=== PATIENT | male | born 1945 | race Caucasian/White ===

== ENCOUNTER 2020-09-16 11:46 | Emergency (ER) | payer OTHER, SELFPAY ==
[2020-09-16 12:02] VITALS: BP 170/75; PULSE 64; RESP 18; TEMP 36.7; O2SAT 97
[2020-09-16 12:10] LABS: Bilirubin Negative (Negative); Blood Negative (Negative); Clarity Clear (Clear); Glucose Negative (Negative); Ketones Negative (Negative); Leukocyte Esterase Negative (Negative); Nitrite Negative (Negative); Specific Gravity 1.015 (1.005-1.025); Urobilinogen 0.2 EU/dL (Up TO 0.2)
[2020-09-16 12:44] LABS: Abs Immature Grans 0.06 10^3/uL (0.0-0.06); Absolute Basophil Count 0.12 10^3/uL (0.0-0.2); Absolute Eosinophil Count 0.19 10^3/uL (0.0-0.7); Absolute Neutrophil Count 6.73 10^3/uL (1.2-6.7); Basophils % 1.2; Eosinophils % 1.9; HCT 39.3 % (40.0-50.0); HGB 12.4 g/dL (13.5-17.5); Immature Grans % 0.6; Lymphocytes % 21.8; MCH 27.9 pg (27.0-33.0); MCHC 31.6 % (32.0-36.0); MCV 88.3 fL (80-95); MPV 9.7 fL (8.0-11.0); Monocytes % 7.9; Neutrophils % 66.6; Nucleated RBC 0 %; Platelet Count 223 10^3/uL (130-400); RBC 4.45 10^6/uL (4.36-5.78); RDW 15.1 % (11.8-14.1); RDW-SD 49.1 fL
[2020-09-16] MEDS: Normal Saline 500 ML IV (12:47)
[2020-09-16] MEDS: fentaNYL 100 MCG/2 ML VIAL 50 MCG IVP ×2 (12:47→16:32)
[2020-09-16 12:57] LABS: ALT 24 U/L (16-63); AST 23 U/L (15-37); Alkaline Phosphatase 145 U/L (46-116); Anion Gap 6.9 mmol/L (3-11); BUN 12 mg/dL (7-18); Bilirubin, Total 0.5 mg/dL (0.2-1.0); CO2 29.1 mmol/L (21.0-32.0); CREATININE 0.8 mg/dL (0.70-1.30); Calcium 9.3 mg/dL (8.5-10.1); Chloride 102 mmol/L (98-107); Glucose 96 mg/dL (74-106); Lipase 37 U/L (73-393); Potassium 4.3 mmol/L (3.5-5.1); Sodium 138 mmol/L (136-145); Total Protein 8.2 g/dL (6.4-8.2)
--- NOTE | 2020-09-16 13:30 | DI.CT_ITS ---
EXAM: CT THORAX ABD/PEL CTA CLINICAL HISTORY: hx of aneurysm, and left flank pain. TECHNIQUE: Imaging Protocol: Axial computed tomography images with coronal and sagittal reformatted images were created and reviewed CONTRAST MATERIAL: Intravenous: Omnipaque 350 Contrast volume:100 ml Oral: None COMPARISON: CR PORTABLE CHEST ONE VIEW from 10/22/2012 CR PORTABLE CHEST ONE VIEW from 10/22/2012 FINDINGS: CHEST: LUNGS: Bilateral COPD changes both lung bustamante. Small bilateral pleural effusions. Small thin-matt d bulla is noted in the right lung base.. MEDIASTINUM: There is no hilar nor mediastinal adenopathy. Visualized thyroid unremarkable. CARDIAC: Sternotomy wires. Heart size is slightly prominent. There is no pericardial effusion. Lar ge retrocardiac hiatal hernia. AORTA: Thoracic aorta is atherosclerotic butthere is no evidence of aortic dissection. Left vertebra l artery originates as an independent vessel off the aortic arch. The diameter of the ascending thor acic aorta is within normal limits.. Diameter of the thoracic aortic arch is slightly prominent at 3 .4 cm. Diameter of the proximal descending thoracic aorta is upper normal-slightly prominent. Diame ter of the descending thoracic aorta is upper normal. There is an infrarenal fusiform abdominal aortic aneurysmwhich exhibits a maximum diameter of 3.3 cm. This is at the RUBIA level. 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 Both common femoral arteries are patent and nonaneurysmal. V isualized proximal SFA arteries are patent. ABDOMEN: There is no ascites. There is a large retrocardiac hiatal hernia. A large part of the stomach is in the chest. LIVER: There are no focal hepatic lesions nor dilatation of intrahepatic ducts. GALLBLADDER/BILIARY: Single small 4 millimeter gallstone noted. No gallbladder wall edema. CBD is n ot dilated. PANCREAS: No evidence of pancreatic mass nor dilatation of the pancreatic duct. SPLEEN: Spleen is not enlarged. There are no intrasplenic lesions. Splenic and portal veins are rose nt. ADRENALS: There are no significant adrenal masses. KIDNEYS: There are parapelvic cysts in both kidneys, more so on the left side. There is a small nono bstructive calculus in the right kidney measuring 3 millimeters. There are no calculi in the opposit e-left kidney. No solid renal masses. ABDOMINAL AORTA: As above LYMPH NODES: There is no retroperitoneal nor para-aortic adenopathy. No obvious mesenteric masses. ABDOMINAL WALL/GI: There is a left inguinal hernia. It contains a bowel loop which is part of the si gmoid. There is no bowel obstruction at this level. Sigmoid diverticulosis. No obvious acute diver ticulitis. Abundant fecal material noted in the rectum which exhibits diameter of 6.4 cm. PELVIS: LYMPH NODES: There is no intrapelvic nor inguinal adenopathy. GI: No evidence of appendicitis.No evidence of sigmoid diverticulitis. URINARY BLADDER: Somewhat distended REPRODUCTIVE: Prostate size upper normal. OSSEOUS: No significant osseous lesions. IMPRESSION: 1. COPD. Small bilateral pleural effusions. No evidence of aortic dissection, as per request. No i ntrathoracic adenopathy but there is a large retrocardiac hiatal hernia containing most of the stomac h. 2. Cholelithiasis but no evidence of acute cholecystitis nor dilatation of the biliary tree. 3. Solitary 3 millimeter nonobstructive calculus in the right kidney. In the left kidney there are n o calculi. There are parapelvic cysts noted. No obvious calculi seen in the there is an urinary heber dder. The bladder is slightly distended. 4. Left inguinal hernia which contains part of the sigmoid colon. There is no bowel obstruction at t his level. No ascites nor lymphadenopathy evident in the abdomen and pelvis. RADIATION DOSE DELIVERED: 1,106.36mGy.cm Total DLP DATA REPOSITORY: All CT scans at this facility are submitted to the National Radiology Data Registry (NRDR) Dose Index Registry (DIR) with the [employer] (A[employer]). RADIATION OPTIMIZATION: All CT scans at this facility use at least one of these dose optimization te chniques: automated exposure control; mA and/or kV adjustment per patient size (includes targeted exa ms where dose is matched to clinical indication); or iterative reconstruction.
--- NOTE | 2020-09-16 14:07 | W.ED.GENAD ---
Discharge Plan Disposition Patient Disposition: HOME Condition: Good Discharge Details Clinical Impression: Back pain, Inguinal hernia Primary Care Provider: Thomas Lara ED Provider: Tawanna Sheikh Home Meds and New Rx's Prescriptions: New hydrocodone-acetaminophen 5-325 mg tablet 1 tab PO Q6H PRNQty: 7 RF: 0 metaxalone [Skelaxin] 800 mg tablet 800 mg PO TID Qty: 7 RF: 0 No Action lisinopril 20 MG tablet 20 mg PO BID RF: 0 aspirin,buffd-calcium carb-mag 325 MG tablet 325 mg PO DAILY RF: 0 amlodipine 5 MG tablet 5 mg PO DAILY RF: 0 temazepam 15 MG capsule 15 mg PO PRN PRNRF: 0 metoprolol tartrate 50 MG tablet 75 mg PO BID RF: 0 omeprazole 20 MG capsule,delayed release(DR/EC) 40 mg PO DAILY RF: 0 Vitamins and Minerals 1 EACH tablet 1 ea PO DAILY RF: 0 One-Per-Day [place]-3 1 EACH capsule,delayed release(DR/EC) 1 ea PO DAILY RF: 0 Discharge Instructions Instructions: Back Pain (ED) Additional Instructions: Take pain medication as prescribed You may take 650 mg of Tylenol with the hydrocodone every 6 hours, do not do this for longer than 3 days Take MiraLAX while taking pain medication You may take the muscle relaxants, this should not make you drowsy but [place] is addictive and can make you drowsy Please return with strength or sensation changes, worsening pain, fever or chills, or with any new or progressing symptoms including changes in bowel or bladder follow-up with surgery regarding hernia Referrals: Sol Lara DO [OSTEOPATHIC DOCTOR] - Discharge Data Discharge Date/Time-TO BE ENTERED AT DEPARTURE: 09/16/20 16:45 Medical Decision Making Patient is alert and oriented, he is very tender in the left flank region Diagnostic labs do not show acute pathology CT results discussed with Dr. Clement, radiology does show evidence of acute pathology, there is mention of an inguinal hernia containing colon, however it is easily reducible and there is no evidence of incarceration, I was able to reduce completely during the patient encounter and should not cause any discomfort edema appointment source patient's pain There is no evidence of urinary source and no evidence of abnormal urolithiasis or obstructive uropathy Urinalysis pathology Patient is afebrile and feeling symptomatically improved, he is ambulatory with steady gait and I will treat him for musculoskeletal back pain Healing constipation follow-up Given the threshold to return should he have complaints Instructions blood pressure recheck by primary care physician was supplied with several doses of opiate analgesia, I did discuss risk of addiction and complications associated with disease medication Given the threshold to return should you have new or worsening complaints Differential Diagnosis Differential Diagnosis: Abdominal aortic dissection, ureterolithiasis, UTI, diverticulitis Medical Records Medical records reviewed: Yes I reviewed the patient's medical records. Lab Data Lab results reviewed: Yes I reviewed the patient's lab results. HPI 75-year-old male with history of coronary stent, abdominal aortic aneurysm presents with report of left-sided flank pain. Patient states he has a history of nephrolithiasis but not ureterolithiasis. also called and mentioned that patient has an abdominal aortic aneurysm, patient apparently was not aware of this. He denies any chest pain or shortness of breath. He denies dizziness or weakness. He states the pain started about 8:00 last night resolved while he was sleeping and when he awoke the pain returned. He states that radiates into the anterior portion of his abdomen. He denies any falls or injuries. He denies any skin discoloration. He denies history of similar pain in the past. He denies alcohol consumption. Denies urinary complaints. General Date/Time Provider Initiated Documentation: 09/16/20 12:25. Related Data Home Medications Medication Instructions Recorded Confirmed amlodipine 5 mg PO DAILY 10/22/12 09/16/20 aspirin,buffd-calcium carb-mag 325 mg PO DAILY 10/22/12 09/16/20 lisinopril 20 mg PO BID 10/22/12 09/16/20 metoprolol tartrate 75 mg PO BID 10/22/12 09/16/20 multivitamin,tx-minerals [Vitamin 1 ea PO DAILY 10/22/12 09/16/20 and Minerals] omega-3 fatty acids-fish oil 1 ea PO DAILY 10/22/12 09/16/20 [Brandon 3 Fish Oil Softgel] omeprazole 40 mg PO DAILY 10/22/12 09/16/20 temazepam 15 mg PO PRN PRN 10/22/12 09/16/20 hydrocodone-acetaminophen 1 tab PO Q6H PRN #7 tab 03/15/21 metaxalone [Skelaxin] 800 mg PO TID #7 tab 09/16/20 Previous Rx's Medication Instructions Recorded hydrocodone-acetaminophen 1 tab PO Q6H PRN #7 tab 09/16/20 metaxalone [Skelaxin] 800 mg PO TID #7 tab 09/16/20 Allergies Allergy/AdvReac Type Severity Reaction Status Date / Time No Known Allergies Allergy Unverified 09/16/20 12:07 General Stated Complaint: FlankPain AMY: 3 Review of Systems Narrative: Review of systems obtained x7 aside from where indicated in HPI PFSH Social History Smoking/Tobacco Use Status: Current every day Tobacco Type: cigarettes Smoking risk assessment performed?: Yes Alcohol Intake: former Drug use: Never Do you feel safe at home: Yes Do you feel safe in your relationship?: Yes Exam Const General: cooperative and no acute distress Eyes Pupils: PERRL Chest Chest: normal inspection of the chest Resp Effort & Inspection: normal respiratory effort Auscultation: clear to auscultation bilaterally Cardio Rate: regular rate Rhythm: regular rhythm GI Other: Left CVA tenderness, no abdominal bruit or pulsatile male Skin General skin exam: no rashes or lesions noted Neuro General: patient alert and patient oriented x3 Extrem Other: Peripheral pulses intact, no tenderness or swelling to bilateral lower extremities Course Vital Signs Vital signs: Vital Signs Temperature 36.7 C 09/16/20 12:02 Pulse 64 09/16/20 12:02 Respiratory Rate 18 09/16/20 12:02 Blood Pressure 170/75 H 09/16/20 12:02 Pulse Oximetry 97 09/16/20 12:02 Temperature 36.7 C 09/16/20 12:02 Temperature Source Temporal Artery Scan 09/16/20 12:02 Pulse 64 09/16/20 12:02 Respiratory Rate 18 09/16/20 12:02 Respiratory Effort Non-Labored 09/16/20 12:05 Blood Pressure 170/75 H 09/16/20 12:02 Blood Pressure Position Sitting 09/16/20 12:02 Pulse Oximetry 97 09/16/20 12:02 Pain Level 10 09/16/20 12:47 Lab/Test Results Lab/Test Results: Laboratory Tests Range/Units 09/16/20 09/16/20 09/16/20 12:00 12:25 12:25 WBC (4.4-10.8) 10^3/uL 10.10 RBC (4.36-5.78) 10^6/uL 4.45 Hgb (13.5-17.5) g/dL 12.4 L Hct (40.0-50.0) % 39.3 L MCV (80-95) fL 88.3 MCH (27.0-33.0) pg 27.9 MCHC (32.0-36.0) % 31.6 L RDW (11.8-14.1) % 15.1 H Plt Count (130-400) 10^3/uL 223 MPV (8.0-11.0) fL 9.7 Immature Gran % 0.6 Neutrophils % 66.6 Lymphocytes % 21.8 Monocytes % 7.9 Eosinophils % 1.9 Basophils % 1.2 Nucleated RBC % % 0 Absolute Neutrophils (1.2-6.7) 10^3/uL 6.73 H Absolute Lymphocytes (1.2-3.4) 10^3/uL 2.20 Absolute Monocytes (0.1-0.8) 10^3/uL 0.80 Absolute Eosinophils (0.0-0.7) 10^3/uL 0.19 Absolute Basophils (0.0-0.2) 10^3/uL 0.12 Sodium (136-145) mmol/L 138 Potassium (3.5-5.1) mmol/L 4.3 Chloride (98-107) mmol/L 102 Carbon Dioxide (21.0-32.0) mmol/L 29.1 Anion Gap (3-11) mmol/L 6.9 BUN (7-18) mg/dL 12 Creatinine (0.70-1.30) mg/dL 0.8 Estimated GFR/1.73 m2 (mL/min/1.73m2) >= 60.00 Glucose (74-106) mg/dL 96 Calcium (8.5-10.1) mg/dL 9.3 Total Bilirubin (0.2-1.0) mg/dL 0.5 AST (15-37) U/L 23 ALT (16-63) U/L 24 Alkaline Phosphatase (46-116) U/L 145 H Total Protein (6.4-8.2) g/dL 8.2 Albumin (3.4-5.0) g/dL 4.0 Lipase (73-393) U/L 37 Urine Color (Yellow) Yellow Urine Clarity (Clear) Clear Urine pH (5-8) 6.0 Ur Specific [place] (1.005-1.025) 1.015 Urine Protein (Negative) mg/dL Negative Urine Ketones (Negative) mg/dL Negative Urine Blood (Negative) Negative Urine Nitrite (Negative) Negative Urine Bilirubin (Negative) Negative Urine Urobilinogen (Up TO 0.2) EU/dL 0.2 Ur Leukocyte Esterase (Negative) Negative Urine Glucose (Negative) mg/dL Negative
[2020-09-16 14:09] LABS: Troponin I < 0.05 ng/mL (<0.06)
[2020-09-16] MEDS: Omnipaque 350 MG/ML 100 ML BTL IJ (14:55)
[2020-09-16 15:51] VITALS: BP 167/82; PULSE 63; RESP 18; TEMP 36.7; O2SAT 95
[2020-09-16 16:32] VITALS: BP 191/82; PULSE 66; RESP 18; TEMP 36.7; O2SAT 97
== END 2020-09-16 16:45 | disposition home or self-care (01) ==
PROVIDERS: Emergency Provider Physician Assistant; PCP Specialist
DX: K40.90 Unilateral inguinal hernia, without obstruction or gangrene, not specified as recurrent (principal); M54.5 Low back pain; Z87.442 Personal history of urinary calculi
CPT/HCPCS: 36415; 74177; 80053; 83690; 96361; 96374; 96376; 99285; 81003; 84484; 85025; 99284; J3010; J3490

== ENCOUNTER 2023-02-03 16:46 | Emergency (ER) | payer OTHER, SELFPAY ==
--- NOTE | 2023-02-03 16:45 | RT.EKG_ITS ---
APPROVED REPORT Exam: Resting ECG Reason for Exam: SOB Patient Location: E HR:59 bpm ECG Measurements Heart Rate 59 AXIS [place] 223 P 255 QRSd 108 QRS 82 QT 449 T 13 QTc 445 Conclusion Sinus or ectopic atrial bradycardia...P axis (-45,135), rate< 60 Prolonged KY interval...KY >220, V-rate 50- 90
--- NOTE | 2023-02-03 16:47 | ED.GENADUL_ITS ---
Discharge Plan Disposition Patient Disposition: Home Condition: Stable Discharge Details Clinical Impression: Shortness of breath, Anemia, CHF (congestive heart failure) Primary Care Provider: Thomas Lara ED Provider: Librado Shetty Home Meds and New Rx's Prescriptions: New prednisone 20 mg tablet 60 mg PO DAILY 4 Days Qty: 12 0RF furosemide [Lasix] 20 mg tablet 20 mg PO DAILY Qty: 30 0RF Continued lisinopril 20 MG tablet 20 mg PO BID aspirin,buffd-calcium carb-mag 325 MG tablet 325 mg PO DAILY amlodipine 5 MG tablet 5 mg PO DAILY temazepam 15 MG capsule 15 mg PO PRN PRN metoprolol tartrate 50 MG tablet 75 mg PO BID omeprazole 20 MG capsule,delayed release(DR/EC) 40 mg PO DAILY Vitamins and Minerals 1 EACH tablet 1 ea PO DAILY One-Per-Day [place]-3 1 EACH capsule,delayed release(DR/EC) 1 ea PO DAILY hydrocodone-acetaminophen 5-325 mg tablet 1 tab PO Q6H PRNQty: 7 0RF metaxalone [Skelaxin] 800 mg tablet 800 mg PO TID Qty: 7 0RF Discharge Instructions Instructions: Pulmonary Edema (ED) Additional Instructions: follow up with your primary care provider's office within 2 weeks and discuss continuing your lasix if you feel more ill, have worsening shortness of breath or chest pain return to the emergency department Medical Decision Making 77 yo male with hx of copd and quit smoking a year ago, htn, denies prior cardiac history, comes in with chief complaint of productive cough and shortness of breath. Denies chest pain/pressure, fevers, chills, abdominal pain. No recent travel. Arrives ambulatory not appearing dyspneic while walking. He is caox4 speaking in full sentences. He has apical wheezing and lower lobe wheezing on exam bilaterally, no jvd, no leg swelling, no calf tenderness. No hypoxia or tachycardia and no pleuritic pain so doubt PE. Will treat with duoneb and solumedrol as I suspect copd and also obtain ekg/troponin, cbc, cmp, probnp and reassess. Pt stable and feels better per patient, still ambulating withought evidence of dyspnea. He does have mildly reduced EF on pocus, xray with mild interstitial edema and pleural effusions. His is now here and advises he has had open heart surgery/bypass in the past 11 years ago. He has been on lasix for fluid problems before and he's not currently on it. He is anemic, I did a retal and has brown guiac negative stool. He and his state he has been being [facility] and started iron supplements recently. Discussed r anastacioults with pt and given the chf and anemia aren't new, he feels well and has stable vitals he prefers outpatient management which I feel is reasonable as well. I will start him on lasix and 4 more days of prednisone. He will f/u with his pcp and return precautions given Differential Diagnosis Differential Diagnosis: copd, pneumonia, chf, anemia Medical Records Medical records reviewed: Yes I reviewed the patient's medical records. Imaging Data Radiologic Study: Attestation: I personally reviewed and interpreted this imaging study as follows: Imaging: X-Ray Radiologist's impression: Patient Name: Aman Davies Unit #: [id number] Loc: ER ? Ordering Provider:? Librado Shetty M.D. Status: REG ER ? Primary Care Provider: Thomas Lara Date of Exam: 02/03/23 Sex: M ? Admission Date: 02/03/23? : 1945 ? Age: 77 ? Exam(s) XR CHEST 2V PA ? LATERAL EXAM:? XR CHEST 2V PA ? LATERAL CLINICAL HISTORY:? cough, shortness of breath TECHNIQUE:? 2D digital imaging was performed. COMPARISON:? CR PORTABLE CHEST ONE VIEW from 10/22/[address] THORAX ? ABD/PEL CTA from 09/16/2020 FINDINGS: LUNGS: Small bilateral pleural effusions.? Small amount of fluid in the fissures.? No focal area of consolidation increased interstitial markings suspicious for CHF.. HEART: Enlarged.? Status post CABG.? Pop pulmonary vascularity is prominent.? There is peribronchial thickening. AORTA: Normal diameter. BONES: Sternal wires.? Midthoracic compression fracture, stable from prior chest CT. Soft tissues: Large hiatal hernia. IMPRESSION: Small bilateral pleural effusions, vascular prominence and interstitial changes consistent with CHF.? No focal consolidation is visible. Lab Data Lab results reviewed: Yes I reviewed the patient's lab results. ECG Data Attestation: I personally reviewed and interpreted this ECG (s) as follows: Prior ECG tracings: not available for review Interpretation: sinus, rate of 60, pr 223, qtc 449, no stemi HPI General Mode of arrival: ambulatory . Date/Time Provider Initiated Documentation: 02/03/23 16:46 . Limitations to Documentation: no limitations . Information obtained by: patient . History of Present Illness 77 year old M presents to the emergency department with the chief complaint of cough, described as moderate, Patient started experiencing this week(s) (1) and it has been intermittent. No relieving factors improve symptom(s), No exacerbating factors reported . Patient notes shortness of breath; denies chest pain and fever/chills. Patient did receive the following treatments prior to arrival, none Related Data Home Medications Medication Instructions Recorded Confirmed amlodipine 5 mg tablet 5 mg PO DAILY 10/22/12 09/16/20 aspirin,buffered (calcium 325 mg PO DAILY 10/22/12 09/16/20 carbonate-magnesium) 325 mg tablet lisinopril 20 mg tablet 20 mg PO BID 10/22/12 09/16/20 metoprolol tartrate 50 mg tablet 75 mg PO BID 10/22/12 09/16/20 multivitamin,tx-minerals (Vitamins 1 ea PO DAILY 10/22/12 09/16/20 and Minerals tablet) omega-3 fatty acids-fish oil 684 1 ea PO DAILY 10/22/12 09/16/20 mg-1,200 mg capsule,delayed release (One-Per-Day [place]-3) omeprazole 20 mg capsule,delayed 40 mg PO DAILY 10/22/12 09/16/20 release temazepam 15 mg capsule 15 mg PO PRN PRN 10/22/12 09/16/20 hydrocodone 5 mg-acetaminophen 325 1 tab PO Q6H PRN #7 tabs 09/16/20 mg tablet metaxalone 800 mg tablet (Skelaxin) 800 mg PO TID #7 tabs 09/16/20 furosemide 20 mg tablet (Lasix) 20 mg PO DAILY #30 tabs 02/03/23 prednisone 20 mg tablet 60 mg PO DAILY 4 days #12 tabs 02/03/23 Previous Rx's Medication Instructions Recorded hydrocodone 5 mg-acetaminophen 325 1 tab PO Q6H PRN #7 tabs 09/16/20 mg tablet metaxalone 800 mg tablet (Skelaxin) 800 mg PO TID #7 tabs 09/16/20 furosemide 20 mg tablet (Lasix) 20 mg PO DAILY #30 tabs 02/03/23 prednisone 20 mg tablet 60 mg PO DAILY 4 days #12 tabs 02/03/23 Allergies Allergy/AdvReac Type Severity Reaction Status Date / Time No Known Allergies Allergy Unverified 02/03/23 16:52 General AMY: 3 Review of Systems All systems reviewed & are unremarkable except as noted in HPI and below Constitutional Constitutional: Denies chills, Denies fever(s) and Denies weakness Cardiovascular Cardiovascular: Denies chest pain and Reports dyspnea Respiratory Respiratory: Reports cough and Reports dyspnea Gastrointestinal Gastrointestinal: Denies abdominal pain, Denies nausea and Denies vomiting Musculoskeletal Musculoskeletal: Denies joint swelling Neurologic Neurologic: Denies weakness PFSH All Active Problems (Updated 02/03/23 @ 18:51 by Librado Shetty MD) Back pain (Acute) Inguinal hernia (Acute) Shortness of breath (Acute) Anemia (Chronic) CHF (congestive heart failure) (Chronic) Social History Smoking/Tobacco Use Status: Former Tobacco Use Smoking risk assessment performed?: Yes Alcohol Intake: former Drug use: Never Do you feel safe at home: Yes Do you feel safe in your relationship?: Yes Exam Const General: no acute distress Orientation: alert [facility] Head: normal to inspection Ears: external ears normal General nose exam: external nose normal Mouth: moist mucous membranes Eyes General: appearance normal, both eyes and all related structures Neck Neck: normal visual inspection Resp Effort & Inspection: normal respiratory effort and able to speak in complete sentences Auscultation: wheezes Cardio Jugular venous pressure: no JVD Rate: regular rate Heart Sounds: no murmurs GI Palpation: soft and nontender Skin General skin exam: no rashes or lesions noted Neuro General: patient alert and patient oriented x3 Extrem General: normal to inspection, no calf tenderness bilaterally and no pedal edema Psych Mental Status: mental status grossly normal POCUS Exam (ED) Limited Cardiac Exam DATE OF EXAM: 02/03/23 TIME OF EXAM: 17:01 PROVIDER THAT PERFORMED THE STUDY: Librado Shetty IS THIS A REPEAT EXAM DURING THIS ENCOUNTER: no REASON FOR EXAM: Dyspnea VISUALIZED STRUCTURES: Left ventricle and Right ventricle VIEW OBTAINED: Parasternal long-axis and Parasternal short-axis PERTINENT FINDINGS/IMPRESSION: No pericardial effusion and No RV dilation DIFFERENTIAL DIAGNOSES: appears to have mild reduced EF Exam complete
[2023-02-03 16:49] VITALS: BP 165/67; PULSE 60; RESP 20; O2SAT 97
--- NOTE | 2023-02-03 17:00 | DI.RAD_ITS ---
Exam(s) XR CHEST 2V PA LATERAL EXAM: XR CHEST 2V PA LATERAL CLINICAL HISTORY: cough, shortness of breath TECHNIQUE: 2D digital imaging was performed. COMPARISON: CR PORTABLE CHEST ONE VIEW from 10/22/[address] THORAX ABD/PEL CTA from 09/16/2020 FINDINGS: LUNGS: Small bilateral pleural effusions. Small amount of fluid in the fissures. No focal area of c onsolidation increased interstitial markings suspicious for CHF.. HEART: Enlarged. Status post CABG. Pop pulmonary vascularity is prominent. There is peribronchial thickening. AORTA: Normal diameter. BONES: Sternal wires. Midthoracic compression fracture, stable from prior chest CT. Soft tissues: Large hiatal hernia. IMPRESSION: Small bilateral pleural effusions, vascular prominence and interstitial changes consistent with CHF. No focal consolidation is visible. DATA REPOSITORY: RADIATION DOSE DELIVERED:
[2023-02-03 17:23] VITALS: PULSE 58; RESP 18; O2SAT 96
[2023-02-03] MEDS: Albuterol/Ipratropium 3 ML UPD VIAL UPD (17:23)
[2023-02-03 17:28] LABS: Source Nasal/Nares
[2023-02-03 17:29] LABS: BE (Venous) 2 mmol/L (-2-3); HCO3 (Venous) 27 mmol/L (23-28); O2 Sat (Venous) 65 %; TCO2 (Venous) 27 mmol/L (24-29); pCO2 (Venous) 48 mmHg (41-51); pH (Venous) 7.37 (7.31-7.41); pO2 (Venous) 37 mmHg
[2023-02-03] MEDS: methylPREDNISolone SUCC 125 MG VIAL IVP (17:30)
[2023-02-03 17:31] LABS: Abs Immature Grans 0.03 10^3/uL (0.0-0.06); Absolute Basophil Count 0.09 10^3/uL (0.0-0.2); Absolute Eosinophil Count 0.17 10^3/uL (0.0-0.7); Absolute Lymphocyte Count 1.76 10^3/uL (1.2-3.4); Absolute Monocyte Count 0.91 10^3/uL (0.1-0.8); Absolute Neutrophil Count 5.92 10^3/uL (1.2-6.7); Eosinophils % 1.9; HGB 8.1 g/dL (13.5-17.5); Immature Grans % 0.3; Lymphocytes % 19.8; MCH 23.1 pg (27.0-33.0); MCV 77 fL (80-95); Monocytes % 10.2; Neutrophils % 66.8; Platelet Count 278 10^3/uL (130-400); RBC 3.51 10^6/uL (4.36-5.78); RDW 18.8 % (11.8-14.1); RDW-SD 52.4 fL; WBC 8.88 10^3/uL (4.4-10.8)
[2023-02-03] MEDS: Normal Saline Flush 10 ML SYR IVP (17:36)
[2023-02-03 17:58] LABS: ALT 18 U/L (16-63); AST 19 U/L (15-37); Albumin 3.6 g/dL (3.4-5.0); Alkaline Phosphatase 130 U/L (46-116); Anion Gap 5.7 mmol/L (3-11); BUN 13 mg/dL (7-18); Bilirubin, Total 0.3 mg/dL (0.2-1.0); CO2 28.3 mmol/L (21.0-32.0); CREATININE 0.8 mg/dL (0.70-1.30); Calcium 8.8 mg/dL (8.5-10.1); Chloride 102 mmol/L (98-107); Estimated GFR 90.58 (mL/min/1.73m2); Glucose 103 mg/dL (74-106); Magnesium 1.8 mg/dL (1.8-2.4); NT-proBNP 1144 pg/mL (<300); Sodium 136 mmol/L (136-145); TSH (W/Ref FT4) 2.02 uIU/mL (0.36-3.74); Total Protein 7.6 g/dL (6.4-8.2); Troponin I < 50 ng/L (<or=60)
[2023-02-03 18:07] LABS: COVID-19 PCR Negative (Negative)
[2023-02-03 18:15] VITALS: BP 149/57
[2023-02-03 18:30] VITALS: BP 144/67
[2023-02-03 18:48] VITALS: BP 154/66; PULSE 59; RESP 16; O2SAT 93
== END 2023-02-03 19:14 | disposition home or self-care (01) ==
PROVIDERS: Emergency Provider Emergency Medicine; PCP Specialist
DX: R06.02 Shortness of breath (principal); D64.9 Anemia, unspecified; I50.9 Heart failure, unspecified; R05.9 Cough, unspecified
CPT/HCPCS: 36415; 80053; 82805; 87635; 93005; 93308; 94640; 96374; 99284; 71046; 83735; 83880; 84443; 84484; 85025; 93010; J2930; J7620

== ENCOUNTER 2023-05-27 15:37 | Emergency (ER) | payer OTHER, SELFPAY ==
[2023-05-27] VITALS (34 sets, daily range): BP systolic 112–163; BP diastolic 57–84; PULSE 67–100; RESP 14–30; TEMP 36.8–36.9; O2SAT 93–100
[2023-05-27] MEDS: Tranexamic Acid 1,000 MG/10 ML VIAL 1000 MG (15:50)
[2023-05-27 16:20] LABS: Abs Immature Grans 0.04 10^3/uL (0.0-0.06); Absolute Basophil Count 0.11 10^3/uL (0.0-0.2); Absolute Eosinophil Count 0.16 10^3/uL (0.0-0.7); Absolute Lymphocyte Count 1.91 10^3/uL (1.2-3.4); Absolute Monocyte Count 0.89 10^3/uL (0.1-0.8); Absolute Neutrophil Count 7.17 10^3/uL (1.2-6.7); Basophils % 1.1; Eosinophils % 1.6; HCT 35.3 % (40.0-50.0); HGB 10.9 g/dL (13.5-17.5); Immature Grans % 0.4; Lymphocytes % 18.6; MCHC 30.9 % (32.0-36.0); MCV 88 fL (80-95); MPV 10.2 fL (8.0-11.0); Monocytes % 8.7; Neutrophils % 69.6; Platelet Count 226 10^3/uL (130-400); RBC 4.03 10^6/uL (4.36-5.78); RDW 17.8 % (11.8-14.1); RDW-SD 57.5 fL; WBC 10.28 10^3/uL (4.4-10.8)
[2023-05-27] MEDS: Tranexamic Acid 1,000 MG/10 ML VIAL 1000 MG IVP (16:21)
--- NOTE | 2023-05-27 16:25 | W.ED.GENAD ---
Discharge Plan Disposition Patient Disposition: Transfer-Acute Inpatient Care Specific Acute Inpt Facility: [facility] Condition: Serious Discharge Details Clinical Impression: Anticoagulated, Anemia, Oral hemorrhage Primary Care Provider: Thomas Lara ED Provider: Steffen Vera Home Meds and New Rx's Prescriptions: No Action lisinopril 20 MG tablet 20 mg PO ONCE amlodipine 5 MG tablet 5 mg PO DAILY metoprolol tartrate 50 MG tablet 75 mg PO BID omeprazole 20 MG capsule,delayed release(DR/EC) 40 mg PO DAILY Vitamins and Minerals 1 EACH tablet 1 ea PO DAILY One-Per-Day [place]-3 1 EACH capsule,delayed release(DR/EC) 1 ea PO DAILY metaxalone [Skelaxin] 800 mg tablet 800 mg PO TID Qty: 7 0RF furosemide [Lasix] 20 mg tablet 20 mg PO DAILY Qty: 30 0RF Eliquis 5 mg tablet 5 mg PO BID melatonin 10 mg tablet 10 mg PO QHS tamsulosin [Flomax] 0.4 mg capsule 0.4 mg PO DAILY albuterol 90 mcg/actuation aerosol inhalation polyethylene glycol 3350 [ClearLax] 17 gram/dose powder 17 g PO DAILY acetaminophen 325 mg capsule 325 mg PO ONCE PRN atorvastatin [Lipitor] 80 mg tablet 80 mg PO DAILY Discharge Data Discharge Date/Time-TO BE ENTERED AT DEPARTURE: 05/27/23 19:27 Medical Decision Making 163 --patient seen immediately on arrival. 78-year-old male presents 13 days status post dental surgery with chief complaint of bleeding from postoperative site since 5 AM. Patient has significant flowing blood from tooth socket #15-16. Patient is on Eliquis. Patient tachycardic and dizzy. Concern for anemia from acute blood loss. 3 cc of lidocaine with epinephrine injected locally. Direct pressure applied with TXA soaked gauze and bleeding has slowed. Plan to give Kcentra 35 units/kg IV and attempt to reverse factor Xa inhibitor for management of life-threatening bleeding. Hemoglobin 10.9. 1637 -- I contacted [facility] transfer center request emergent transfer and unfortunately have no oral surgeon available occupational therapy instructor. I requested consultation with ENT. I contact [facility] transfer center and requested transfer. They do not have a oral surgeon occupational therapy instructor. I requested to speak with NPC. 1699 --patient reassessed and bleeding has stopped with direct pressure. I am concerned about potential for rebleed. 1705 --I spoke to [facility] ENT resident, discussed ED presentation course, he is discussing case with his attending and calling back. I spoke to NPC at [facility] Dr. Landis, discussed ED presentation and course, he notes there is a dentist available occupational therapy instructor at [facility] and he will accept the patient in transfer if no OMFS regionally identified. [place], [facility], [place], and [facility] were all contacted and no OMFS available. Awaiting call from [facility] ENT. 173 --I spoke with [facility] ENT resident and he would recommend dental assessment at [facility] as best option. [facility] transfer center was notified. Plan to transfer at this time. HPI General Mode of arrival: ambulatory. Date/Time Provider Initiated Documentation: 05/27/23 15:40. Limitations to Documentation: no limitations. Information obtained by: patient. HPI Narrative: 78-year-old male with history of anemia, A-fib on Eliquis, presents 13 days status post dental surgery with significant bleeding from his left upper molar postoperative site since 5 AM this morning. Bleeding is significant. No modifiers. Patient feels associated dizziness. Related Data Home Medications Medication Instructions Recorded Confirmed amlodipine 5 mg tablet 5 mg PO DAILY 10/22/12 05/27/23 lisinopril 20 mg tablet 20 mg PO ONCE 10/22/12 05/27/23 metoprolol tartrate 50 mg tablet 75 mg PO BID 10/22/12 05/27/23 multivitamin,tx-minerals (Vitamins 1 ea PO DAILY 10/22/12 05/27/23 and Minerals tablet) omega-3 fatty acids-fish oil 684 1 ea PO DAILY 10/22/12 05/27/23 mg-1,200 mg capsule,delayed release (One-Per-Day [place]-3) omeprazole 20 mg capsule,delayed 40 mg PO DAILY 10/22/12 05/27/23 release metaxalone 800 mg tablet (Skelaxin) 800 mg PO TID #7 tabs 09/16/20 05/27/23 furosemide 20 mg tablet (Lasix) 20 mg PO DAILY #30 tabs 02/03/23 05/27/23 acetaminophen 325 mg capsule 325 mg PO ONCE PRN 05/27/23 05/27/23 albuterol 90 mcg/actuation aerosol mcg inhalation 05/27/23 inhaler apixaban 5 mg tablet (Eliquis) 5 mg PO BID 05/27/23 05/27/23 atorvastatin 80 mg tablet (Lipitor) 80 mg PO DAILY 05/27/23 05/27/23 melatonin 10 mg tablet 10 mg PO QHS 05/27/23 05/27/23 polyethylene glycol 3350 17 17 g PO DAILY 05/27/23 05/27/23 gram/dose oral powder (ClearLax) tamsulosin 0.4 mg capsule (Flomax) 0.4 mg PO DAILY 05/27/23 05/27/23 Previous Rx's Medication Instructions Recorded metaxalone 800 mg tablet (Skelaxin) 800 mg PO TID #7 tabs 09/16/20 furosemide 20 mg tablet (Lasix) 20 mg PO DAILY #30 tabs 02/03/23 Allergies Allergy/AdvReac Type Severity Reaction Status Date / Time No Known Allergies Allergy Unverified 02/03/23 16:52 General Stated Complaint: DentalOral AMY: 3 Review of Systems All systems reviewed & are unremarkable except as noted in HPI and below PFSH All Active Problems (Updated 05/27/23 @ 17:36 by Steffen Vera MD) Oral hemorrhage (Acute) Anemia (Chronic) Anticoagulated (Acute) AAA (abdominal aortic aneurysm) (Acute) Inguinal hernia (Acute) Back pain (Acute) Social History Smoking/Tobacco Use Status: Former Tobacco Use Smoking risk assessment performed?: Yes Alcohol Intake: former Drug use: Never Do you feel safe at home: Yes Do you feel safe in your relationship?: Yes Exam Const General: cooperative HENMT Mouth: moist mucous membranes Other: Flowing blood from postoperative site tooth #15-16 Eyes Conjunctivae: normal conjunctivae Sclera: normal sclerae Neck Neck: trachea midline Resp Auscultation: clear to auscultation bilaterally, no rales, no rhonchi and no wheezes Cardio Rhythm: regular rhythm Neuro General: patient alert, patient awake, patient oriented x3 and tone normal Course Vital Signs Vital signs: Vital Signs Temperature 36.9 C 05/27/23 15:41 Pulse 93 H 05/27/23 15:41 Respiratory Rate 16 05/27/23 15:41 Blood Pressure 150/65 H 05/27/23 15:41 Pulse Oximetry 98 05/27/23 15:41 Temperature 36.8 C 05/27/23 15:46 Temperature Source Tympanic 05/27/23 15:46 Pulse 100 H 05/27/23 15:46 Respiratory Rate 16 05/27/23 15:46 Respiratory Effort Normal 05/27/23 15:46 Blood Pressure 150/65 H 05/27/23 15:46 Blood Pressure Position Sitting 05/27/23 15:46 Pulse Oximetry 99 05/27/23 15:46 Oxygen Delivery Method Room Air 05/27/23 15:46 Oxygen Flow Rate 0 05/27/23 15:41 Pain Level 0 05/27/23 15:46 Lab/Test Results Lab/Test Results: Laboratory Tests Range/Units 05/27/23 15:56 WBC (4.4-10.8) 10^3/uL 10.28 RBC (4.36-5.78) 10^6/uL 4.03 L Hgb (13.5-17.5) g/dL 10.9 L Hct (40.0-50.0) % 35.3 L MCV (80-95) fL 88 MCH (27.0-33.0) pg 27.0 MCHC (32.0-36.0) % 30.9 L RDW (11.8-14.1) % 17.8 H Plt Count (130-400) 10^3/uL 226 MPV (8.0-11.0) fL 10.2 Immature Gran % 0.4 Neutrophils % 69.6 Lymphocytes % 18.6 Monocytes % 8.7 Eosinophils % 1.6 Basophils % 1.1 Nucleated RBC % (0.0-0.3) % 0.0 Absolute Neutrophils (1.2-6.7) 10^3/uL 7.17 H Absolute Lymphocytes (1.2-3.4) 10^3/uL 1.91 Absolute Monocytes (0.1-0.8) 10^3/uL 0.89 H Absolute Eosinophils (0.0-0.7) 10^3/uL 0.16 Absolute Basophils (0.0-0.2) 10^3/uL 0.11
[2023-05-27 16:34] LABS: INR 1.1 (0.9-1.1); PTT Activated 29.6 sec (23.6-32.8); Prothrombin Time 10.6 sec (9.1-11.1)
[2023-05-27 16:36] LABS: ALT 22 U/L (16-63); AST 22 U/L (15-37); Albumin 3.7 g/dL (3.4-5.0); Alkaline Phosphatase 123 U/L (46-116); Anion Gap 6.4 mmol/L (3-11); BUN 15 mg/dL (7-18); Bilirubin, Total 0.4 mg/dL (0.2-1.0); CO2 28.6 mmol/L (21.0-32.0); CREATININE 0.9 mg/dL (0.70-1.30); Calcium 9.2 mg/dL (8.5-10.1); Chloride 102 mmol/L (98-107); Estimated GFR 86.88 (mL/min/1.73m2); Glucose 145 mg/dL (74-106); Potassium 4.1 mmol/L (3.5-5.1); Sodium 137 mmol/L (136-145); Total Protein 7.5 g/dL (6.4-8.2)
== END 2023-05-27 19:27 | disposition short-term general hospital (02) ==
PROVIDERS: Emergency Provider Student in an Organized Health Care Education/Training Program; PCP Specialist
DX: K91.841 Postprocedural hemorrhage of a digestive system organ or structure following other procedure (principal); R42 Dizziness and giddiness; R00.0 Tachycardia, unspecified; D62 Acute posthemorrhagic anemia; I48.91 Unspecified atrial fibrillation; Z79.01 Long term (current) use of anticoagulants; Z98.818 Other dental procedure status; Z87.891 Personal history of nicotine dependence
CPT/HCPCS: 36415; 80053; 86850; 86900; 86901; 96374; 99285; 85025; 85610; 85730

== ENCOUNTER 2024-08-02 11:28 | Inpatient (IN) | payer OTHER, SELFPAY ==
[2024-08-02] VITALS (104 sets, daily range): BP systolic 99–154; BP diastolic 33–86; PULSE 55–102; RESP 10–30; TEMP 36.8; O2SAT 88–98
--- NOTE | 2024-08-02 12:30 | DI.CT_ITS ---
Exam(s) CT ABDOMEN PELVIS W EXAM: CT ABDOMEN PELVIS W CLINICAL HISTORY: Epigastric and RLQ pain, obstipation. TECHNIQUE: Imaging Protocol: Axial computed tomography images with coronal and sagittal reformatted images were created and reviewed CONTRAST MATERIAL: Intravenous: Omnipaque-350 75cc Oral: None COMPARISON: CT CT THORAX ABD/PEL CTA from 09/16/2020 FINDINGS: VISUALIZED LUNG BASES: There is an ominous mass in the posterior basal segment of the right lower lob e now evident measuring 5.5 cm wide by 3.3 cm AP by 4 cm craniocaudal and there is an ipsilateral sma ll loculated pleural effusion over this region. The opposite-left lung bases clear and also no left pleural effusion. There is a very large hiatal hernia noted which measures 13 cm wide by 9 cm AP by approximately 9 cm craniocaudal.. ABDOMEN: There is a small amount of perisplenic ascites. LIVER: There are no focal hepatic lesions evident. There are dilated intrahepatic ducts in both lobe s of the liver. The CBD is also dilated. Maximum measurement approximately 14 mm there is no obviou s radiopaque calculus in the dilated CBD.. GALLBLADDER/BILIARY: The gallbladder is distended to 12 cm by 5 cm. Does not contain obvious radiopa que calculi and the gallbladder wall is not edematous. There is no pericholecystic fluid. PANCREAS: This CBD diameter at the level the pancreatic head is 9 mm. There is no obvious pancreatic head mass. The body and tail the pancreas are somewhat hypodense-probably an element of pancreatiti s. There is possible mass in the pancreatic body measuring 2.5 x 2.3 cm. There is minimal peripancr eatic fat streaking. There are no peripancreatic fluid collections. SPLEEN: Spleen size is normal. Some ascitic fluid is seen lateral to the spleen. There are no splen ic lesions. Splenic vein is not opacified and appears thrombosed. The main portal vein is patent as are intrahepatic portal veins. Superior mesenteric vein also appears thrombosed. ADRENALS: There are no significant adrenal masses. KIDNEYS:Left kidney unremarkable. There is a 2.4 cm benign cyst in the superior pole region of the r ight kidney. There is also a nonobstructive 3-4 millimeter unchanged calculus at the mid pole level of the right kidney, previously present in 2020. There is no hydronephrosis nor hydroureter on eithe r side. No solid renal masses.. ABDOMINAL AORTA: The abdominal aorta is calcified-atherosclerotic. There is an abdominal aortic aneu rysm which is fusiform-infrarenal and exhibits a maximum diameter of 3.9 cm. Slightly larger than pr evious. The common iliac arteries are calcified and ectatic, both exhibiting diameters 1.5 cm. 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 No obvious dissection. LYMPH NODES:There is no obvious retroperitoneal nor paraaortic adenopathy. ABDOMINAL WALL: No evidence of significant anterior abdominal wall nor inguinal hernia. GI: There is abundant fecal material in the proximal half of the colon. Also in the redundant sigmoi d where there is also diverticulosis but without obvious acute diverticulitis. PELVIS: GI: No evidence of appendicitis.Extensive diverticulosis without obvious diverticulitis. LYMPH NODES: There is no intrapelvic nor inguinal adenopathy. REPRODUCTIVE: Prostate size mildly enlarged.. URINARY BLADDER: The urinary bladder is distended, measuring 13.6 cm AP by 10 cm wide by 8 cm cranioc audal. OSSEOUS: There is a compression fracture of the superior endplate of L5 which was not previously evid ent on CT scan of 2020 no obvious lytic nor blastic lesions evident in the field of view of this stud y. IMPRESSION: 1. There is a concerning for neoplastic mass in the right lower lobe posterior basal segment measurin g 5.5 x 3.3 x 4 cm. There is an adjacent small loculated pleural effusion. 2. There is significant dilatation of the biliary tree, both intra and extrahepatic including a diste nded Cour[place]isier-type gallbladder. In addition, there are signs of pancreatitis and possible pancre atic head-body mass. There is occlusion of the splenic and upper superior mesenteric vein and portal vein confluence. The main portal vein and intrahepatic veins are patent. The main portal vein is r econstituted via collaterals. 3. Large hiatal hernia. Abdominal aortic aneurysm. Also aneurysmal dilatation aortoiliac segments a s described above. 4. Small nonobstructive unchanged calculus in the right kidney. No significant kidney masses. No hy dronephrosis. 5. There is a compression fracture of superior endplate of L5 which was not evident on CT scan of [facility] 2020. Approximately 20 percent height loss. Report called by myself to ER physician 08/02/2024 2:55 p.m. RADIATION DOSE DELIVERED: 397.94mGy.cm Total DLP DATA REPOSITORY: All CT scans at this facility are submitted to the National Radiology Data Registry (NRDR) Dose Index Registry (DIR) with the [employer] (A[employer]). RADIATION OPTIMIZATION: All CT scans at this facility use at least one of these dose optimization te chniques: automated exposure control; mA and/or kV adjustment per patient size (includes targeted exa ms where dose is matched to clinical indication); or iterative reconstruction.
--- NOTE | 2024-08-02 12:44 | ED.GENADUL_ITS ---
Discharge Plan Discharge Details Chief Complaint: Abd Prob Clinical Impression: Pancreatitis, AAA (abdominal aortic aneurysm), Mass of pancreas, Mass of lower lobe of lung, Acute thrombosis of splenic vein, Transaminitis, Dilation of biliary tract, Anticoagulated, CAD (coronary artery disease) Primary Care Provider: Thomas Lara ED Provider: Linnea Agee Home Meds and New Rx's Prescriptions: No Action lisinopril 20 MG tablet 20 mg PO ONCE amlodipine 5 MG tablet 5 mg PO DAILY metoprolol tartrate 50 MG tablet 75 mg PO BID omeprazole 20 MG capsule,delayed release(DR/EC) 40 mg PO DAILY Vitamins and Minerals 1 EACH tablet 1 ea PO DAILY One-Per-Day [place]-3 1 EACH capsule,delayed release(DR/EC) 1 ea PO DAILY metaxalone [Skelaxin] 800 mg tablet 800 mg PO TID Qty: 7 0RF furosemide [Lasix] 20 mg tablet 20 mg PO DAILY Qty: 30 0RF Eliquis 5 mg tablet 5 mg PO BID melatonin 10 mg tablet 10 mg PO QHS tamsulosin [Flomax] 0.4 mg capsule 0.4 mg PO DAILY albuterol 90 mcg/actuation aerosol inhalation polyethylene glycol 3350 [ClearLax] 17 gram/dose powder 17 g PO DAILY acetaminophen 325 mg capsule 325 mg PO ONCE PRN atorvastatin [Lipitor] 80 mg tablet 80 mg PO DAILY HPI General Mode of arrival: ambulatory . Date/Time Provider Initiated Documentation: 08/02/24 11:44 . Limitations to Documentation: no limitations . Information obtained by: patient, family and old records reviewed . HPI Narrative: HPI: This is an 79-year-old male patient with a past medical history significant for AAA, unruptured, presenting for evaluation of approximately 2 weeks of abdominal pain. The patient reports that his pain is located in his right lower quadrant, does not radiate, is associated with some chronic constipation. States he typically passes a bowel movement every 2 to 3 days, last was yesterday. He did have an episode of vomiting last night, has been taking MiraLAX. The patient otherwise has not tried any medications in the outpatient environment to manage the symptoms. The patient reports that he has a history of abdominal surgery including appendectomy and left inguinal hernia repair. Denies urinary symptoms, states that he has not been able to eat for the last day or so due to his nausea and vomiting. Exam: Gen: Awake and alert, in no apparent distress HEENT: Non-icteric sclera Neck: Supple Lungs: No apparent respiratory distress, normal respiratory effort. CV: Appears well perfused, heart with regular rate and rhythm, strong distal pulses Abdomen: Non-distended, soft, tender to palpation I note primarily in the epigastric region, though he does verbalize some pain to palpation in the right lower quadrant. No rigidity or rebound. No flank pain MSK: Moves 4 extremities without apparent limitation in ROM Skin: Visualized skin without rashes, cyanosis. Neuro: Normal Gait, no obvious focal deficits or facial asymmetry. Speaks in full, clear sentences. Psych: Appropriate for situation. MDM: This is AN 79-year-old male patient presenting for evaluation of abdominal pain. My differential includes but is not limited to bowel obstruction, aortic aneurysm rupture, mesenteric ischemia, hepatitis, cholecystitis, pancreatitis, gastritis, diverticulitis. I considered metabolic electrolyte derangements, kidney injuries, anemia. We will obtain laboratory studies to include CBC, CMP, magnesium troponin, lactate, and lipase. Will obtain a urinalysis and a CT scan of the abdomen and pelvis, and provide the patient with a dose of Zofran and Dilaudid for symptomatic management as well as Tylenol. ED Course: I reviewed the patient's laboratory studies, which showed no leukocytosis, stable anemia and no thrombocytopenia. Chemistry panel is without electrolyte derangements or evidence of kidney dysfunction. His liver enzymes are concerning with a new transaminitis, AST 412 ALT 661, and elevated bilirubin to 2.4, and an alkaline phosphatase of 595. The troponin is negative and the lipase is low. I performed a bedside ultrasound as noted below, which shows a distended gallbladder without pericholecystic fluid, wall thickening, some evidence of sludge but no obvious gallstones or shadowing. I reviewed the CT scan and discussed the findings with the radiologist, who notes that the patient has concerning findings including a malignant appearing mass in the right lower lobe of the lung with a small pleural effusion, dilatation of the biliary tree with a distended gallbladder and evidence of pancreatitis and a potential pancreatic mass. He notes thrombosis of the splenic vein. The patient's aneurysm is unruptured. I shared these concerning findings with the patient and his family member, patient states that he has never been diagnosed with any malignancies in the past. He does not drink alcohol, states that he has noted some unintentional weight loss over the last year or so. Denies jaundice, night sweats. I provided the patient with an additional dose of pain medication for his recurrent abdominal pain, and reached out to [facility] hematology/oncology to discuss recommendations for initial workup and management. Certainly the patient will require admission for his evidence of pancreatitis, transaminitis, and biliary dysfunction. Unfortunately, neither [facility] nor [facility] have capacity for transfer. I was able to consult a member of the hematology/oncology team at [facility], who recommended therapeutic Lovenox, 1 mg/kg subcutaneous twice per day, completion of the CT chest. I signed out care of this patient to the oncoming provider prior to disposition, pending placement at a hematology/oncology capable facility. I did discuss the case with our hospitalist who is aware of the patient in the event that we are unable to secure transfer to a tertiary facility. Leeann West MD Related Data Home Medications ?Medication ?Instructions ?Recorded ?Confirmed amlodipine 5 mg tablet 5 mg PO DAILY 10/22/12 05/27/23 lisinopril 20 mg tablet 20 mg PO ONCE 10/22/12 05/27/23 metoprolol tartrate 50 mg tablet 75 mg PO BID 10/22/12 05/27/23 multivitamin,tx-minerals (Vitamins 1 ea PO DAILY 10/22/12 05/27/23 and Minerals tablet) omega-3 fatty acids-fish oil 684 1 ea PO DAILY 10/22/12 05/27/23 mg-1,200 mg capsule,delayed release (One-Per-Day [place]-3) omeprazole 20 mg capsule,delayed 40 mg PO DAILY 10/22/12 05/27/23 release metaxalone 800 mg tablet (Skelaxin) 800 mg PO TID #7 tabs 09/16/20 05/27/23 furosemide 20 mg tablet (Lasix) 20 mg PO DAILY #30 tabs 02/03/23 05/27/23 acetaminophen 325 mg capsule 325 mg PO ONCE PRN 05/27/23 05/27/23 albuterol 90 mcg/actuation aerosol mcg inhalation 05/27/23 inhaler apixaban 5 mg tablet (Eliquis) 5 mg PO BID 05/27/23 05/27/23 atorvastatin 80 mg tablet (Lipitor) 80 mg PO DAILY 05/27/23 05/27/23 melatonin 10 mg tablet 10 mg PO QHS 05/27/23 05/27/23 polyethylene glycol 3350 17 17 g PO DAILY 05/27/23 05/27/23 gram/dose oral powder (ClearLax) tamsulosin 0.4 mg capsule (Flomax) 0.4 mg PO DAILY 05/27/23 05/27/23 Previous Rx's ?Medication ?Instructions ?Recorded metaxalone 800 mg tablet (Skelaxin) 800 mg PO TID #7 tabs 09/16/20 furosemide 20 mg tablet (Lasix) 20 mg PO DAILY #30 tabs 02/03/23 Allergies Allergy/AdvReac Type Severity Reaction Status Date / Time No Known Allergies Allergy Unverified 08/02/24 11:47 General Stated Complaint: Abd Prob AMY: 3 Course Vital Signs Vital signs: Vital Signs Temperature 36.8 C 08/02/24 11:42 Pulse 83 08/02/24 11:42 Respiratory Rate 14 08/02/24 11:42 Blood Pressure 146/70 H 08/02/24 11:42 Pulse Oximetry 94 08/02/24 11:42 Temperature 36.8 C 08/02/24 11:42 Temperature Source Oral 08/02/24 11:42 Pulse 83 08/02/24 11:42 Respiratory Rate 14 08/02/24 11:42 Blood Pressure 146/70 H 08/02/24 11:42 Blood Pressure Position Sitting 08/02/24 11:42 Pulse Oximetry 94 08/02/24 11:42 Oxygen Delivery Method Room Air 08/02/24 11:42 Oxygen Flow Rate 0 08/02/24 11:42 Pain Level 8 08/02/24 12:34 Medical Decision Making Quality:SDOH Health Related Social Needs: No Data to Display PFSH All Active Problems (Updated 08/02/24 @ 17:41 by Leeann West MD) CAD (coronary artery disease) (Chronic) Anticoagulated (Acute) Dilation of biliary tract (Acute) Transaminitis (Acute) Acute thrombosis of splenic vein (Acute) Mass of lower lobe of lung (Acute) Mass of pancreas (Acute) Pancreatitis (Chronic) AAA (abdominal aortic aneurysm) (Acute) Inguinal hernia (Acute) Back pain (Acute) Social History Smoking/Tobacco Use Status: Current every day Tobacco Type: cigarettes Tobacco: How many years used: 65 Smoking risk assessment performed?: Yes Alcohol Intake: former Drug use: Never Substance use type: does not use Housing: house Do you feel safe at home: Yes Do you feel safe in your relationship?: Yes
[2024-08-02] MEDS: Ondansetron 4 MG/2 ML VIAL IVP ×2 (13:00→15:54)
[2024-08-02] MEDS: HYDROmorphone 2 MG/ML SYR 0.5 MG IVP ×3 (13:01→21:28)
[2024-08-02 13:02] LABS: Lactate 1.1 mmol/L (<or=2.0)
[2024-08-02 13:03] LABS: Abs Immature Grans 0.04 10^3/uL (0.0-0.06); Absolute Basophil Count 0.06 10^3/uL (0.0-0.2); Absolute Eosinophil Count 0.11 10^3/uL (0.0-0.7); Absolute Lymphocyte Count 1.06 10^3/uL (1.2-3.4); Absolute Monocyte Count 0.68 10^3/uL (0.1-0.8); Absolute Neutrophil Count 6.57 10^3/uL (1.2-6.7); Basophils % 0.7 %; Eosinophils % 1.3 %; HCT 35.1 % (40.0-50.0); HGB 11.3 g/dL (13.5-17.5); Immature Grans % 0.5 %; Lymphocytes % 12.4 %; MCHC 32.2 % (32.0-36.0); MCV 90 fL (80-95); MPV 10.9 fL (8.0-11.0); Neutrophils % 77.1 %; Platelet Count 160 10^3/uL (130-400); RDW 14.4 % (11.8-14.1); RDW-SD 47.1 fL; WBC 8.52 10^3/uL (4.4-10.8)
[2024-08-02] MEDS: Acetaminophen 500 MG TAB 1000 MG PO (13:03)
[2024-08-02 13:26] LABS: ALT 661 U/L (16-63); AST 412 U/L (15-37); Albumin 3.7 g/dL (3.4-5.0); Alkaline Phosphatase 595 U/L (46-116); Anion Gap 4.3 mmol/L (3-11); BUN 19 mg/dL (7-18); Bilirubin, Total 2.44 mg/dL (0.2-1.0); CO2 30.7 mmol/L (21.0-32.0); CREATININE 0.8 mg/dL (0.70-1.30); Calcium 9.3 mg/dL (8.5-10.1); Chloride 102 mmol/L (98-107); Estimated GFR 89.47 (mL/min/1.73m2); Glucose 202 mg/dL (74-106); Lipase 19 U/L (<78); Magnesium 1.9 mg/dL (1.8-2.4); Potassium 4.3 mmol/L (3.5-5.1); Sodium 137 mmol/L (136-145); Total Protein 7.6 g/dL (6.4-8.2); Troponin I 11 ng/L (<or=76)
[2024-08-02] MEDS: Omnipaque 350 MG/ML 500 ML BTL-Imaging package 70 ML IJ (14:16)
[2024-08-02] MEDS: Normal Saline - Diluent 50 ML VIAL IJ ×2 (14:18→17:32)
[2024-08-02 14:21] LABS: Troponin I 13 ng/L (<or=76)
[2024-08-02 16:36] LABS: Bilirubin Small (Negative); Blood Negative (Negative); Clarity Clear (Clear); Glucose Negative (Negative); Ketones Negative (Negative); Leukocyte Esterase Trace (Negative); Nitrite Negative (Negative); pH 5.5 (5-8)
[2024-08-02 16:44] LABS: Bacteria Negative HPF (Negative); C & S Indicated? No; Crystals Negative HPF (Negative); Epithelial Cells Negative HPF (Negative); Mucus Negative (Negative); RBC Negative HPF (0-2); WBC Negative HPF (0-5)
--- NOTE | 2024-08-02 17:15 | DI.CT_ITS ---
Exam(s) CT CHEST W EXAM: CT CHEST W CLINICAL HISTORY: Malignancy workup. TECHNIQUE: Multi planar reconstructions were performed. CONTRAST MATERIAL: Omnipaque 350; 60 cc COMPARISON: CR XR CHEST 2V PA LATERAL from 02/03/2023 02/03/2023. FINDINGS: CHEST: LUNGS: There is a large centrally hypodense malignant-appearing mass in the posterior basal segment o f the right lower lobe which measures 5.5 cm wide by 3.3 cm AP x 4 cm craniocaudal and there is a sma ll ipsilateral pleural effusion. There are COPD findings. No other significant nodules in the right lung. Small nodular infiltrate in the left upper lobe noted which measures 4 mm. There are bilater al small bullae measuring up to 1.8 cm size. These do not contain fluid levels nor thickened peralta. No pleural fluid on the left side. Very large hiatal hernia is again noted. No significant finding s in the trachea. Some mucous noted in the left mainstem bronchus. Right mainstem bronchus clear. There is no obvious bronchiectasis. MEDIASTINUM: No hilar adenopathy. No adenopathy evident in the anterior mediastinal fat and paratrac heal. There are small lymph nodes in the subcarinal region. No supraclavicular adenopathy. No axil kary adenopathy. Visualized thyroid unremarkable. CARDIAC: There are sternotomy wires. Mild cardiomegaly. No pericardial effusion. Diameter of the a scending thoracic aorta is upper normal. There is a mild aneurysm at the mid aortic arch level with maximum diameter of the aortic arch at this level being 3.1 cm. The diameter of the descending thora cic aorta is minimally prominent, measuring 3 cm. No dissection. VISUALIZED UPPER ABDOMEN:See significant findings on dedicated CT abdomen dictation from earlier toda y per. OSSEOUS: No significant osseous lesions.T8 compression fracture noted with approximately 40 percent h eight loss. Does not appear acute. No canal compromise at this level.. IMPRESSION: 1. There is COPD findings and there is an ominous appearing mass in the posterior basal segment of th e right lower lobe measuring 5.5 x 3.3 x 4 cm, suspicious for neoplasm. There is a small ipsilateral right pleural effusion. The main differential diagnosis for this mass would be lung abscess in the correct clinical setting. There is a small 4 millimeter nodular infiltrate in the left upper lobe al so noted. 2. Sternotomy. Mild cardiomegaly. Mild focal aneurysm at the mid aortic arch level with maximum dayan meter 3.1 cm at this level no evidence of rupture or dissection. 3. Nonacute appearing T8 compression fracture. 4. Very large hiatal hernia again noted. This measures approximately 12.5 cm wide by 9 cm AP by 10 cm craniocaudal. Report called by myself to ER 08/02/2024 at 5:58 p.m. RADIATION DOSE DELIVERED: 116.39mGy.cm Total DLP DATA REPOSITORY: All CT scans at this facility are submitted to the National Radiology Data Registry (NRDR) Dose Index Registry (DIR) with the [employer] (A[employer]). RADIATION OPTIMIZATION: All CT scans at this facility use at least one of these dose optimization te chniques: automated exposure control; mA and/or kV adjustment per patient size (includes targeted exa ms where dose is matched to clinical indication); or iterative reconstruction.
[2024-08-02] MEDS: Omnipaque 350 MG/ML 100 ML BTL 60 ML IJ (17:34)
--- NOTE | 2024-08-02 17:39 | W.EDPROG ---
Date of service: 08/02/24 Time of Service: 17:39 Medical Decision Making This patient was signed out to me. Please see previous notes for H&P and initial eval. In brief, 79yo M presented with abdominal pain, found to have likely malignancy with masses in lung and pancreas with splenic vein thrombosis, elevated LFTs. Started on lovenox, [facility] at [facility] and [facility] hospitalist does not feel pt is appropriate for care here. Signed out with plan to locate accepting facility for transfer. Spoke with Dr. Sibley in the ED at [facility] who advised we speak with general surgery there to see if they feel pt appropriate for transfer. Spoke with Dr. Montero [facility], pt thought to be better served at a tertiary care facility, recommends reaching out to [facility] as this is where they typically transfer these patients. Discussed with [facility] transfer center who spoke with their hospital medicine team; hospitalist would like input from GI to confirm that they have interventions to offer prior to accepting in transfer. I spoke with Dr. Lionel MIDDLETON at [facility] who feels pt is appropriate for transfer, would offer endoscopic ultrasound. Awaiting callback from [facility] hospitalist for formal acceptance. Will be signed out to oncoming physician, plan as above. Quality:SDAR Health Related Social Needs: No Data to Display Discharge Plan Discharge Details Chief Complaint: Abd Prob Clinical Impression: Pancreatitis, AAA (abdominal aortic aneurysm), Mass of pancreas, Mass of lower lobe of lung, Acute thrombosis of splenic vein, Transaminitis, Dilation of biliary tract, Anticoagulated, CAD (coronary artery disease) Primary Care Provider: Thomas Lara ED Provider: Linnea Agee Home Meds and New Rx's Prescriptions: No Action lisinopril 20 MG tablet 5 mg PO DAILY omeprazole 20 MG capsule,delayed release(DR/EC) 20 mg PO DAILY furosemide [Lasix] 20 mg tablet 20 mg PO DAILY Qty: 30 0RF Eliquis 5 mg tablet 5 mg PO BID tamsulosin [Flomax] 0.4 mg capsule 0.4 mg PO DAILY albuterol 90 mcg/actuation aerosol 90 mcg inhalation QID PRN acetaminophen 325 mg capsule 650 mg PO Q6H PRN atorvastatin [Lipitor] 80 mg tablet 80 mg PO DAILY carboxymethylcellulose 0.5 % ophthalmic (eye) QID PRN ferrous gluconate 324 mg (37.5 mg iron) tablet 324 mg PO .every other day metoprolol succinate 50 mg tablet extended release 24 hr 50 mg PO DAILY Spiriva Respimat 2.5 mcg/actuation mist 2 inh inhalation DAILY trazodone 100 mg tablet 100 mg PO DAILY PRN
[2024-08-02] MEDS: Enoxaparin 80 MG/0.8 ML SYR 75 MG SC (17:56)
[2024-08-03] VITALS (93 sets, daily range): BP systolic 96–132; BP diastolic 36–72; PULSE 56–96; TEMP 36.6; O2SAT 90–97
--- NOTE | 2024-08-03 01:06 | HPE_ITS ---
Date of service: 08/03/24 Time of Service: 01:06 Assessment and Plan Assessment and plan (1) Abdominal pain: Status: Acute Assessment and plan: Abdominal pain, non-specific, but findings indicate likely malignancy of either lung or pancreatico-biliary tract, or both, and pain is likely related in some fashion. Needs further diagnostic workup, pending transfer to [facility]. For now will leave NPO in anticipation of endoscopic procedure, and with prn antiemetics and analgesics. Reviewed ADs, states he leaves these matters up to his ; will default to Full Code. History of Present Illness History of Present Illness Chief Complaint: abdominal pain Narrative: 79 male former smoker here with several weeks of RLQ pain and occasional vomiting. Work up in ER notable for findings of large lung mass RLL, dilated gall bladder w/o stones, dilated CBD to 14 mm, question mass body of pancreas and splenic vein thrombosis. Only finding possibly referable to presenting RLQ pain is of large stool volume in proximal colon. Chemistries of note for TAs to 400-600 range, Alk phos 595 and bili 2.4 Case reviewed with tertiary care [facility], no bed availability but advised therapeutic Lovenox for splenic vein thrombosis. Patient then accepted for transfer to [facility] in [place], [place] but anticipated bed availability not until later today, service of Dr Alexandre. Patient will be admitted here pending transfer. Patient has received Dilaudid, Zofran , APAP and IVF. Requesting more pain med at time of visit. Review of Systems Narrative: per HPI PFSH All Active Problems (Updated 08/03/24 @ 01:19 by Manuel Gordon MD) Abdominal pain (Acute) CAD (coronary artery disease) (Chronic) Anticoagulated (Acute) Dilation of biliary tract (Acute) Transaminitis (Acute) Acute thrombosis of splenic vein (Acute) Mass of lower lobe of lung (Acute) Mass of pancreas (Acute) Pancreatitis (Chronic) AAA (abdominal aortic aneurysm) (Acute) Inguinal hernia (Acute) Back pain (Acute) Social History Smoking/Tobacco Use Status: Current every day Tobacco Type: cigarettes Tobacco: How many years used: 65 Smoking risk assessment performed?: Yes Alcohol Intake: former Drug use: Never Substance use type: does not use Housing: house Do you feel safe at home: Yes Do you feel safe in your relationship?: Yes Meds Allergies and Home Medications Allergies Allergy/AdvReac Type Severity Reaction Status Date / Time No Known Allergies Allergy Unverified 08/02/24 11:47 Home Medications ?Medication ?Instructions ?Recorded ?Confirmed ?Type lisinopril 20 mg tablet 5 mg PO DAILY 10/22/12 08/02/24 History omeprazole 20 mg capsule,delayed 20 mg PO DAILY 10/22/12 08/02/24 History release furosemide 20 mg tablet (Lasix) 20 mg PO DAILY #30 tabs 02/03/23 08/02/24 Rx acetaminophen 325 mg capsule 650 mg PO Q6H PRN 05/27/23 08/02/24 History albuterol 90 mcg/actuation aerosol 90 mcg inhalation QID PRN 05/27/23 08/02/24 History inhaler apixaban 5 mg tablet (Eliquis) 5 mg PO BID 05/27/23 08/02/24 History atorvastatin 80 mg tablet (Lipitor) 80 mg PO DAILY 05/27/23 08/02/24 History tamsulosin 0.4 mg capsule (Flomax) 0.4 mg PO DAILY 05/27/23 08/02/24 History carboxymethylcellulose 0.5 % ophthalmic (eye) QID PRN 08/02/24 08/02/24 History ferrous gluconate 324 mg (37.5 mg 324 mg PO .every other day 08/02/24 08/02/24 History iron) tablet metoprolol succinate 50 mg 50 mg PO DAILY 08/02/24 08/02/24 History tablet,extended release 24 hr tiotropium bromide 2.5 2 inh inhalation DAILY 08/02/24 08/02/24 History mcg/actuation mist for inhalation (Spiriva Respimat) trazodone 100 mg tablet 100 mg PO DAILY PRN 08/02/24 08/02/24 History Exam Narrative Exam Narrative: 104/52, 85, 36.8, 30, 94% RA. HEENT anicteric; neck supple; lungs clear; heart RRR; abdomen soft, minimal RLQ tenderness, gall bladder not palpable; extremities w/o edema; neuro Ox3, lucid, moves all 4s Results Labs 08/02/24 12:55 08/02/24 12:55 Labs: Laboratory Results - last 24 hr 08/02/24 08/02/2408/02/25 12:55 13:32 15:32 WBC 8.52 RBC 3.90 L Hgb 11.3 L Hct 35.1 L MCV 90 MCH 29.0 MCHC 32.2 RDW 14.4 H Plt Count 160 MPV 10.9 Immature Gran % 0.5 Neutrophils % 77.1 Lymphocytes % 12.4 Monocytes % 8.0 Eosinophils % 1.3 Basophils % 0.7 Nucleated RBC % 0.0 Absolute Neutrophils 6.57 Absolute Lymphocytes 1.06 L Absolute Monocytes 0.68 Absolute Eosinophils 0.11 Absolute Basophils 0.06 VBG Lactate 1.1 Sodium 137 Potassium 4.3 Chloride 102 Carbon Dioxide 30.7 Anion Gap 4.3 BUN 19 H Creatinine 0.8 Est GFR (CKD-EPI 2020) 89.47 Glucose 202 H Calcium 9.3 Magnesium 1.9 Total Bilirubin 2.44 H AST 412 H ALT 661 H Alkaline Phosphatase 595 H Troponin I 11 13 Cancelled Total Protein 7.6 Albumin 3.7 Lipase 19 Urine Color Urine Clarity Urine pH Ur Specific [place] Urine Protein Urine Ketones Urine Blood Urine Nitrite Urine Bilirubin Urine Urobilinogen Ur Leukocyte Esterase Urine RBC Urine WBC Ur Epithelial Cells Urine Crystals Urine Bacteria Urine Mucus Ur Culture Indicated? Urine Glucose 08/02/24 16:23 WBC RBC Hgb Hct MCV MCH MCHC RDW Plt Count MPV Immature Gran % Neutrophils % Lymphocytes % Monocytes % Eosinophils % Basophils % Nucleated RBC % Absolute Neutrophils Absolute Lymphocytes Absolute Monocytes Absolute Eosinophils Absolute Basophils VBG Lactate Sodium Potassium Chloride Carbon Dioxide Anion Gap BUN Creatinine Est GFR (CKD-EPI 2020) Glucose Calcium Magnesium Total Bilirubin AST ALT Alkaline Phosphatase Troponin I Total Protein Albumin Lipase Urine Color Yellow Urine Clarity Clear Urine pH 5.5 Ur Specific [place] 1.020 Urine Protein Trace Urine Ketones Negative Urine Blood Negative Urine Nitrite Negative Urine Bilirubin Small H Urine Urobilinogen 4.0 H Ur Leukocyte Esterase Trace H Urine RBC Negative Urine WBC Negative Ur Epithelial Cells Negative Urine Crystals Negative Urine Bacteria Negative Urine Mucus Negative Ur Culture Indicated? No Urine Glucose Negative Last Vital Signs Temp 36.8 C 08/02/24 11:42 Pulse 85 08/03/24 00:50 Resp 30 H 08/02/24 23:50 BP 104/52 L 08/03/24 00:46 Pulse Ox 94 08/03/24 00:50 Time Spent Time spent with Patient: 55-74 minutes Time was spent: preparing to see the patient(eg.review tests), obtaining and/or reviewing separately otained hiistory, ordering medications,tests, procedures, referring, communicating with other health child care counselor and indepentently interpreting results
[2024-08-03] MEDS: HYDROmorphone 2 MG/ML SYR 0.5 MG IVP ×3 (01:10→08:24)
[2024-08-03] MEDS: Lactated Ringers 1,000 ML 100 ML IV (01:15)
[2024-08-03] MEDS: Enoxaparin 80 MG/0.8 ML SYR 75 MG SC (08:22)
[2024-08-03] MEDS: Omeprazole 20 MG CAPCR PO (08:23)
[2024-08-03] MEDS: Metoprolol CR 50 MG TABCR PO (08:23)
--- NOTE | 2024-08-03 08:27 | NUR.NOTE ---
Pt's arrived, very upset that pt is being transferred to hospital not of her choosing, she is requesting to go to Dr Kameron Aggarwal to speak with about process. Per MD will attempt to get transfer to hospital of choice but per MD he also stated to pt and that they could leave AMA if they so chose but that was not the first choice for MD at this time. pt remains on monitors, VSS, meds given per sep.
--- NOTE | 2024-08-03 09:49 | DSE_ITS ---
Date of service: 08/03/24 Time of Service: 09:49 DS: Diagnosis Discharge Diagnosis (1) Abdominal pain: Status: Acute Discharge Plan Disposition Patient Disposition: Against Medical Advice Condition: Stable Discharge Details Reason For Visit: abdominal pain Admit Date/Time: 08/03/24 01:24 Admit Provider: Manuel Gordon Attending Provider: Manuel Gordon Primary Care Provider: Thomas Lara Hospital Course Hospital Course: This is a 79-year-old gentleman who presented to the ED with approximately 3 weeks of worsening abdominal pain. 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 The patient was accepted into transfer to [facility] in [facility]. When I discussed the case with the patient and his significant other she stated that [place] was too far away and she refused to go there. Patient has to be transferred to [facility] and as this was going to decrease the family's hardship we agreed to try to transfer him. The patient was once again excepted in transfer to [facility] which was part of the [facility] system and once again the significant other said that was too far for her to drive. At that time I gave her her alternatives which include going to the hospital in [place], going to the hospital in [facility] which is part of the [facility] system and would be highly recommended or leaving AMA which is the least desirable. The pt and family chose to leave. Pt is aware that leaving AMA could lead to or permanent disability Home Meds and New Rx's Prescriptions: No Action lisinopril 20 MG tablet 5 mg PO DAILY omeprazole 20 MG capsule,delayed release(DR/EC) 20 mg PO DAILY furosemide [Lasix] 20 mg tablet 20 mg PO DAILY Qty: 30 0RF Eliquis 5 mg tablet 5 mg PO BID tamsulosin [Flomax] 0.4 mg capsule 0.4 mg PO DAILY albuterol 90 mcg/actuation aerosol 90 mcg inhalation QID PRN acetaminophen 325 mg capsule 650 mg PO Q6H PRN atorvastatin [Lipitor] 80 mg tablet 80 mg PO DAILY carboxymethylcellulose 0.5 % ophthalmic (eye) QID PRN ferrous gluconate 324 mg (37.5 mg iron) tablet 324 mg PO .every other day metoprolol succinate 50 mg tablet extended release 24 hr 50 mg PO DAILY Spiriva Respimat 2.5 mcg/actuation mist 2 inh inhalation DAILY trazodone 100 mg tablet 100 mg PO DAILY PRN Discharge Orders Discharge Orders: Discharge Order (Routine); Ordered 08/03/24 Ordered By: Jones Melo DS: Summary Time Spent with Patient providing and/or coordinating discharge services: Greater than 30 minutes Status at Discharge Functional status at discharge: independent ambulation Overall status at discharge: patient is back to baseline Mental Status: mental status grossly normal Speech and Movement: speech and movement normal Mood: congruent mood Affect: normal affect Quality:SDOH Health Related Social Needs: No Data to Display Exam Psych Mental Status: mental status grossly normal Speech and Movement: speech and movement normal Mood: congruent mood Affect: normal affect DS: Data Vitals/I&O Vitals and I&O: Vital Signs Temperature 36.6 C 08/03/24 09:40 Temperature Source Oral 08/02/24 11:42 Pulse 82 08/03/24 09:40 Pulse 95 H 08/03/24 04:50 Respiratory Rate 30 H 08/02/24 23:50 Blood Pressure 114/53 L 08/03/24 09:31 Blood Pressure Mean 72 08/03/24 09:31 Blood Pressure Position Sitting 08/02/24 11:42 Pulse Oximetry 92 08/03/24 09:40 Oxygen Delivery Method Room Air 08/02/24 11:42 Oxygen Flow Rate 0 08/02/24 11:42 Pain Level 7 08/02/24 21:28 Comment sleeping 08/03/24 06:46 Intake & Output 08/02/24 08/02/24 08/03/24 11:59 23:59 11:59 Output Total 625 / 625 Balance -625 / -625 Weight 73.7 kg Output: Urine 625 / 625 Other: Urine Color Light Cindi Data Completed and Pending Labs on day of discharge: Labs from last 24 hours 08/02/24 08/02/24 08/02/24 16:23 15:32 13:32 WBC RBC Hgb Hct MCV MCH MCHC RDW Plt Count MPV Immature Gran % Neutrophils % Lymphocytes % Monocytes % Eosinophils % Basophils % Nucleated RBC % Absolute Neutrophils Absolute Lymphocytes Absolute Monocytes Absolute Eosinophils Absolute Basophils VBG Lactate Sodium Potassium Chloride Carbon Dioxide Anion Gap BUN Creatinine Est GFR (CKD-EPI 2020) Glucose Calcium Magnesium Total Bilirubin AST ALT Alkaline Phosphatase Troponin I Cancelled 13 Total Protein Albumin Lipase Urine Color Yellow Urine Clarity Clear Urine pH 5.5 Ur Specific [place] 1.020 Urine Protein Trace Urine Ketones Negative Urine Blood Negative Urine Nitrite Negative Urine Bilirubin Small H Urine Urobilinogen 4.0 H Ur Leukocyte Esterase Trace H Urine RBC Negative Urine WBC Negative Ur Epithelial Cells Negative Urine Crystals Negative Urine Bacteria Negative Urine Mucus Negative Ur Culture Indicated? No Urine Glucose Negative 08/02/24 12:55 WBC 8.52 RBC 3.90 L Hgb 11.3 L Hct 35.1 L MCV 90 MCH 29.0 MCHC 32.2 RDW 14.4 H Plt Count 160 MPV 10.9 Immature Gran % 0.5 Neutrophils % 77.1 Lymphocytes % 12.4 Monocytes % 8.0 Eosinophils % 1.3 Basophils % 0.7 Nucleated RBC % 0.0 Absolute Neutrophils 6.57 Absolute Lymphocytes 1.06 L Absolute Monocytes 0.68 Absolute Eosinophils 0.11 Absolute Basophils 0.06 VBG Lactate 1.1 Sodium 137 Potassium 4.3 Chloride 102 Carbon Dioxide 30.7 Anion Gap 4.3 BUN 19 H Creatinine 0.8 Est GFR (CKD-EPI 2020) 89.47 Glucose 202 H Calcium 9.3 Magnesium 1.9 Total Bilirubin 2.44 H AST 412 H ALT 661 H Alkaline Phosphatase 595 H Troponin I 11 Total Protein 7.6 Albumin 3.7 Lipase 19 Urine Color Urine Clarity Urine pH Ur Specific [place] Urine Protein Urine Ketones Urine Blood Urine Nitrite Urine Bilirubin Urine Urobilinogen Ur Leukocyte Esterase Urine RBC Urine WBC Ur Epithelial Cells Urine Crystals Urine Bacteria Urine Mucus Ur Culture Indicated? Urine Glucose PFSH All Active Problems (Updated 08/03/24 @ 01:19 by Manuel Gordon MD) Abdominal pain (Acute) CAD (coronary artery disease) (Chronic) Anticoagulated (Acute) Dilation of biliary tract (Acute) Transaminitis (Acute) Acute thrombosis of splenic vein (Acute) Mass of lower lobe of lung (Acute) Mass of pancreas (Acute) Pancreatitis (Chronic) AAA (abdominal aortic aneurysm) (Acute) Inguinal hernia (Acute) Back pain (Acute) Social History Smoking/Tobacco Use Status: Current every day Tobacco Type: cigarettes Tobacco: How many years used: 65 Smoking risk assessment performed?: Yes Alcohol Intake: former Drug use: Never Substance use type: does not use Housing: house Do you feel safe at home: Yes Do you feel safe in your relationship?: Yes Time Spent with Patient Time Spent with Patient: 45-69 minutes Time was spent: preparing to see the patient(eg.review tests), obtaining and/or reviewing separately otained hiistory, referring, communicating with other health healthcare administrator, counseling the patient and care coordination
== END 2024-08-03 10:19 | disposition left against medical advice (07) | DRG 948 ==
LOC: ER 08-03 00:25 → EDHOLD 08-03 02:07
PROVIDERS: Emergency Medicine; Admitting Provider General Practice; Emergency Provider Emergency Medicine Emergency Medical Services; PCP Specialist; Visit Provider General Practice
DX: G89.3 Neoplasm related pain (acute) (chronic) (principal); K86.1 Other chronic pancreatitis; C78.01 Secondary malignant neoplasm of right lung; C78.89 Secondary malignant neoplasm of other digestive organs; R10.9 Unspecified abdominal pain; I25.10 Atherosclerotic heart disease of native coronary artery without angina pectoris; Z79.01 Long term (current) use of anticoagulants; R74.01 Elevation of levels of liver transaminase levels; J98.4 Other disorders of lung; D73.5 Infarction of spleen; K83.8 Other specified diseases of biliary tract; I71.40 Abdominal aortic aneurysm, without rupture, unspecified; F17.210 Nicotine dependence, cigarettes, uncomplicated; K82.4 Cholesterolosis of gallbladder
CPT/HCPCS: 00123; 76705; 80053; 83690; 96372; 96374; 96375; 96376; 99285; 71260; 74177; 81003; 81015; 83605; 83735; 84484; 85025; 99236; J1171; J1650; J2405; J3490